=== PATIENT | female | born 1990 | race Caucasian/White ===

== ENCOUNTER 2019-09-08 09:22 | Emergency (ER) | payer OTHER ==
[2019-09-08 18:37] LABS: SARS-CoV-2 MS2 Positive; SARS-CoV-2 N Gene Negative; SARS-CoV-2 S Gene Negative; SARS-CoV-2 orf1ab Negative
== END 2019-09-08 10:39 | disposition home or self-care (01) ==
LOC: ERS 09:22
DX: Z20.828 Contact with and (suspected) exposure to other viral communicable diseases (principal)
CPT/HCPCS: 87635; 99283; U0003

== ENCOUNTER 2019-10-06 10:22 | Outpatient (CLI) | payer OTHER ==
--- NOTE | 2019-10-06 12:23 | ULT ---
HEPATIC ULTRASOUND WITH DUPLEX INCLUDING COLOR AND SPECTRAL DOPPLER IMAGING: Date: 10/06/2019 HISTORY: Elevated LFTs. Gastroenteritis. FINDINGS: Liver echogenicity is somewhat coarse, evidence for some fatty change. There is at least one large ga llstone within the gallbladder without gallbladder wall thickening or pericholecystic fluid. Common b ile duct 0.6 cm. Spleen appears unremarkable. Hepatic venous and portal venous flow is antegrade. IMPRESSION: 1. Minimally coarse liver echogenicity. 2. Antegrade hepatic and portal venous flow. POS: [facility]
== END 2019-10-06 10:23 | disposition home or self-care (01) ==
LOC: BICULT 10:22
PROVIDERS: ATTEND Internal Medicine Gastroenterology
DX: R94.5 Abnormal results of liver function studies (principal); K76.89 Other specified diseases of liver
CPT/HCPCS: 76705